=== PATIENT | female | born 1930 | race Caucasian/White ===

== ENCOUNTER 2018-10-03 11:00 | Emergency (ER) | payer OTHER ==
[~2018-10-03] VITALS: Ht 165.1 cm; Wt 40.8 kg
[2018-10-03 11:10] VITALS: BP 166/74
[2018-10-03] MEDS ORDERED: NACL 0.9% 500 ML IV SCH (11:16)
[2018-10-03] MEDS ORDERED: ONDANSETRON 4 MG/2 ML VIAL IVP ONE (11:20)
[2018-10-03] MEDS ORDERED: IMO2 PO (11:32)
[2018-10-03] MEDS ORDERED: CALC-1139 PO (11:32)
[2018-10-03] MEDS ORDERED: AMLO5TAB PO (11:32)
[2018-10-03] MEDS ORDERED: [UNRECOGNIZED DRUG - CODE] PO (11:32)
[2018-10-03] MEDS ORDERED: ASCO500T45 PO (11:32)
[2018-10-03] MEDS ORDERED: DOCU-299 PO (11:32)
[2018-10-03] MEDS ORDERED: ONDA4TAB PO (11:32)
[2018-10-03] MEDS ORDERED: ALEN70TA52 PO (11:32)
[2018-10-03 12:03] LABS: BASOPHILS % (AUTO) 0.3 % (0.0-2.0); HEMATOCRIT 39.5 % (36-48); HEMOGLOBIN 12.6 g/dL (12.0-16.0); LYMPHOCYTES # (AUTO) 0.7 K/uL (2.5-16.5); LYMPHOCYTES % (AUTO) 4.7 % (20.5-51.1); MEAN CORPUSCULAR HEMOGLOBIN 29 pg (27-31); MEAN CORPUSCULAR HGB CONC 32 g/dL (33-37); MEAN CORPUSCULAR VOLUME 90.3 fL (80-94); MONOCYTES # (AUTO) 0.3 K/uL (0.8-1.0); MONOCYTES % (AUTO) 1.8 % (1.7-9.3); NEUTROPHILS # (AUTO) 13.9 K/uL (1.8-7.7); NEUTROPHILS % (AUTO) 93.2 % (42.2-75.2); PLATELET COUNT (AUTO) 270 K/uL (140-450); RED BLOOD CELL COUNT(AUTO) 4.38 MIL/uL (4.20-5.40); RED CELL DISTRIBUTION WIDTH 14.3 % (11.6-13.7); WHITE BLOOD COUNT (AUTO) 14.9 K/uL (4.8-10.8)
[2018-10-03 12:21] LABS: ALBUMIN 4.1 g/dL (3.4-5.0); ANION GAP 12.7 (8-16); ASPARTATE AMINOTRANSFERASE 26 U/L (15-37); CARBON DIOXIDE 30.5 mmol/L (21-32); CHLORIDE 100 mmol/L (98-107); CREATININE 0.9 mg/dL (0.6-1.3); GLUCOSE 162 mg/dL (74-106); POTASSIUM 3.2 mmol/L (3.5-5.1); PROTHROMBIN TIME 9.9 secs (10.8-13.4); SODIUM SERUM 140 mmol/L (136-145); TOTAL BILIRUBIN 0.5 mg/dL (0.0-1.0); UREA NITROGEN, BLOOD 14 mg/dL (7-18)
[2018-10-03] MEDS ORDERED: LEVOFLOXACIN 500 MG/D5W PREMIX 100 ML IV ONE (12:45)
[2018-10-03 14:03] LABS: APPEARANCE,URINE HAZY (CLEAR); BILIRUBIN,URINE NEGATIVE (NEGATIVE); BLOOD, URINE NEGATIVE (NEGATIVE); COLOR,URINE YELLOW (YELLOW); LEUKOCYTE ESTERASE ,URINE TRACE (NEGATIVE); NITRITE, URINE POSITIVE (NEGATIVE); UGLUCOSE NEGATIVE (NEGATIVE)
[2018-10-03 14:30] LABS: RBC,URINE 0-5 (RARE) /HPF (0-5)
[2018-10-03 14:55] VITALS: BP 143/70
== END 2018-10-03 14:50 | disposition left against medical advice (07) ==
LOC: MED 11:00
DX: R11.2 Nausea with vomiting, unspecified (principal); R19.7 Diarrhea, unspecified; N39.0 Urinary tract infection, site not specified; K92.2 Gastrointestinal hemorrhage, unspecified; F03.90 Unspecified dementia, unspecified severity, without behavioral disturbance, psychotic disturbance, mood disturbance, and anxiety; I10 Essential (primary) hypertension; Z88.0 Allergy status to penicillin; Z79.899 Other long term (current) drug therapy
CPT/HCPCS: 36415; 71045; 80053; 81001; 83880; 84484; 85025; 85610; 85730; 86886; 86900; 86901; 87040; 87086; 93005; 96361; 96365; 96375; 99284; J1956; J2405; J7030; Q0092

== ENCOUNTER 2019-02-19 00:37 | Emergency (ER) | payer OTHER ==
[~2019-02-19] VITALS: Ht 162.6 cm; Wt 49.9 kg
[2019-02-19 00:37] VITALS: BP 134/64
[~2019-02-19 00:37] MED LIST: ALEN70TA9 PO; AMLO5TAB PO; ASCO500T45 PO; DOCU-299 PO; IMO2 PO; ONDA4TAB PO; [UNRECOGNIZED DRUG - CODE] PO; [UNRECOGNIZED DRUG - CODE] PO
--- NOTE | 2019-02-19 00:37 | NUR ---
PT TRANSFERED FROM [facility] TO BED 7.
--- NOTE | 2019-02-19 00:38 | NUR ---
0032-- PT BIB AMBULANCE, MOVED TO ER BED 7
--- NOTE | 2019-02-19 00:45 | NUR ---
PT IS A 88 Y/O FEMALE WHO PRESENTS TO THE ED C/O SYNCOPE. PER EMS, PT WAS BEING ASSISTED TO THE RESTROOM AT THE FACILITY AND EXPERIENCED A SYNCOPAL EPISODE, PER EMS PT WAS ASSISTED TO THE FLOOR, DENIES LOC/TRAUMA. PT DENIES PAIN AT THIS TIME. PT DENIES CP, SOB, REPORTS NAUSEA DENIES VOMITING/DIARRHEA. PT AWAKE AND ALERT, RR EVEN/UNLABORED. PT REPOSITIONED FOR COMFORT, BED IN LOWEST POSITION. ER MD DR. AMIN NOTIFIED. WILL CONTINUE TO MONITOR. ALLERGIES---PCN, ERYTHROMYCIN, SULFA HX: DEMENTIA, HTN
--- NOTE | 2019-02-19 01:01 | NUR ---
DR. AMIN BEDSIDE EVALUATING PT
--- NOTE | 2019-02-19 01:04 | NUR ---
EKG PERFORMED AT BEDSIDE. PT COVERED IN GOWN AND BLANKET DURING PROCEDURE
--- NOTE | 2019-02-19 01:24 | NUR ---
RAD AT BEDSIDE
[2019-02-19 01:39] LABS: HEMATOCRIT 37.9 % (36-48); HEMOGLOBIN 12.5 g/dL (12.0-16.0); MEAN CORPUSCULAR HEMOGLOBIN 30 pg (27-31); MEAN CORPUSCULAR HGB CONC 33 g/dL (33-37); MEAN CORPUSCULAR VOLUME 91.3 fL (80-94); PLATELET COUNT (AUTO) 280 K/uL (140-450); RED BLOOD CELL COUNT(AUTO) 4.15 MIL/uL (4.20-5.40); RED CELL DISTRIBUTION WIDTH 14.2 % (11.6-13.7); WHITE BLOOD COUNT (AUTO) 17.9 K/uL (4.8-10.8)
--- NOTE | 2019-02-19 01:50 | NUR ---
STAIGHT CATH WAS PERFORMED ON PT. PT TOLERATED WELL. 500 ML OF URINE WAS MEASURED. U/A SPECIMEN WAS COLLECTED AND SENT TO LAB
[2019-02-19 02:02] LABS: PROTHROMBIN TIME 9.9 secs (10.8-13.4)
[2019-02-19 02:04] LABS: ALBUMIN 3.9 g/dL (3.4-5.0); ANION GAP 11.8 (8-16); ASPARTATE AMINOTRANSFERASE 21 U/L (15-37); CHLORIDE 102 mmol/L (98-107); GLUCOSE 159 mg/dL (74-106); POTASSIUM 3.8 mmol/L (3.5-5.1); SODIUM SERUM 140 mmol/L (136-145); TOTAL BILIRUBIN 0.4 mg/dL (0.0-1.0); UREA NITROGEN, BLOOD 19 mg/dL (7-18)
[2019-02-19] MEDS ORDERED: LEVOFLOXACIN 500 MG/D5W PREMIX 100 ML IV ONE (02:05)
[2019-02-19 02:06] LABS: BASOPHILS % (MANUAL) 0 % (0-2); EOSINOPHILS % (MANUAL) 0 % (0-4); LYMPHOCYTES % (MANUAL) 2 % (20-46); MONOCYTES % (MANUAL) 3 % (5-12)
[2019-02-19 02:22] LABS: APPEARANCE,URINE CLOUDY (CLEAR); BILIRUBIN,URINE NEGATIVE (NEGATIVE); BLOOD, URINE NEGATIVE (NEGATIVE); COLOR,URINE YELLOW (YELLOW); LEUKOCYTE ESTERASE ,URINE 3+ (NEGATIVE); NITRITE, URINE POSITIVE (NEGATIVE); PH,URINE 7.5 (5.0-9.0); UGLUCOSE NEGATIVE (NEGATIVE)
[2019-02-19 02:42] LABS: RBC,URINE NONE SEEN /HPF (0-5)
[2019-02-19 02:43] LABS: TRIPLE PHOSPHATE CRYSTAL,UR 0-10 /HPF (None Seen)
--- NOTE | 2019-02-19 03:00 | NUR ---
Contacted [facility] pt discharge. no answer. will call again. kisha whitt made aware
--- NOTE | 2019-02-19 03:05 | NUR ---
spoke to a sales representative aircraft from [facility], was goingto transfer the phone call and waited for 2 min. on hold and they hung up on the call. er md made aware. calling next of kin and insurance for possible transport back to facility.
--- NOTE | 2019-02-19 03:08 | NUR ---
called contact, daughter, no response, left message. kisha whitt made aware.
--- NOTE | 2019-02-19 04:30 | NUR ---
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 eta is [phone]. er md made aware. pt is sleeping, vss.
--- NOTE | 2019-02-19 05:45 | NUR ---
PT IS GETTING RESTLESS WAITING FOR TRANSPORT BACK TO FACILITY, PT REALLY WANTS TO GO HOME. REASSURED HER THAT TRANSPORT IS ON THEIR WAY. PT LAID BACK DOWN AND COMFORT MEASURES WERE OFFERED. PT TOLERATED WELL.
--- NOTE | 2019-02-19 06:15 | NUR ---
PT IS RESTLESS AND WANTS TO GO HOME. OFFERED PT TO GET UP AND SITIN A WHEEL CHAIR. SAFETY MEASURES IN PLACE. PT TOLERATED WELL. PT DRANK APPROX. 8 OZ OF WATER. PT TOLERATED WELL.
--- NOTE | 2019-02-19 06:25 | NUR ---
PT DAUGHTER CALLED AND WILL PICK HER UP. ER MD MADE AWARE. TRANSPORT WAS CANCELLED.
--- NOTE | 2019-02-19 07:05 | NUR ---
RECIEVED REPORT FROM JUS ROSADO
[2019-02-19 07:25] VITALS: BP 149/94
--- NOTE | 2019-02-19 07:25 | NUR ---
Patient discharged with v/s stable. Written and verbal after care instructions given and explained. Patient alert, oriented and verbalized understanding of instructions. Wheel Chair Assisted with to car. All questions addressed prior to discharge. ID band removed. Patient advised to follow up with PMD. Rx of LEVAQUIN given. Patient educated on indication of medication including possible reaction and side effects. Opportunity to ask questions provided and answered.
== END 2019-02-19 07:25 | disposition home or self-care (01) ==
LOC: MED 00:37
DX: R55 Syncope and collapse (principal); R42 Dizziness and giddiness; R11.0 Nausea; F03.90 Unspecified dementia, unspecified severity, without behavioral disturbance, psychotic disturbance, mood disturbance, and anxiety; Z88.0 Allergy status to penicillin; Z79.899 Other long term (current) drug therapy
CPT/HCPCS: 36415; 71045; 80053; 81001; 83880; 84484; 85025; 85610; 85730; 87086; 87186; 93005; 96360; 96365; 99284; J1956